=== PATIENT | female | born 1990 | race Caucasian/White ===

== ENCOUNTER 2022-01-04 11:34 | Emergency (ER) | payer OTHER, SELFPAY ==
[2022-01-04] VITALS (9 sets, daily range): BP systolic 119–128; BP diastolic 77–82; PULSE 79–97; RESP 18; TEMP 36.7; O2SAT 94–100; BMI 28.5
--- NOTE | 2022-01-04 12:47 | DI.CT.S_ITS ---
PROCEDURE: CT ABDOMEN PELVIS W CON INDICATIONS: RLQ pain, bright red blood in stool, sharp pain since 0200 TECHNIQUE: After the administration of intravenous contrast, axial sections acquired from the lung bases to the pubic symphysis. Coronal and sagittal reformats were performed. For radiation dose reduction, the following was used: automated exposure control, adjustment of mA and/or kV according to patient size. COMPARISON: None. FINDINGS: Image quality: Excellent. Lung bases: Unremarkable. Heart: No significant findings. ABDOMEN: Liver: There is mild hepatomegaly, no discrete hepatic lesion.. Gallbladder: Unremarkable. Biliary ducts: Unremarkable. Pancreas: Unremarkable. Spleen: Unremarkable. Adrenal Glands: Unremarkable. Kidneys and Ureters: Unremarkable. Stomach and Bowel: There is no bowel obstruction. No stomach or small bowel wall thickening. Appendix is visualized in right lower quadrant and is normal in size and appearance. There is mild diffuse colonic wall thickening particularly involving hepatic flexure, transverse colon and descending colon extending to sigmoid colon with mild wall edema and minimal amount of pericolonic fat stranding concerning for infectious inflammatory colitis. No abscess collection. Peritoneum: No abnormal intraperitoneal fluid. No free air. Ventral Wall: No hernias. Abdominal Nodes: No retroperitoneal or mesenteric adenopathy by size criteria. Vessels: Aorta and inferior vena cava are normal in size. PELVIS: Pelvic Organs: No gross abnormalities. Bladder: Unremarkable. Pelvic Nodes: No enlarged lymph nodes. Miscellaneous: No hernias are seen. Bones: No suspicious bony lesion. No acute vertebral body compression fracture. IMPRESSION: 1. Extensive colonic wall thickening concerning for infectious or inflammatory colitis. No abscess collection. No free fluid or free air. 2. Normal appendix. No bowel obstruction. 3. Mild hepatomegaly, no discrete hepatic lesion. Dictated by: Demian Wiley M.D. on 01/04/2022 at 13:13 Approved by: Demian Wiley M.D. on 01/04/2022 at 13:16
[2022-01-04 12:57] LABS: Add Manual Diff / Slide Review NO; Basophils Absolute Auto 0 /uL (0-100); Basophils Percent Auto 0.3 % (0-2); Eosinophils Absolute Auto 0 /uL (0-450); Eosinophils Percent Auto 0.2 % (2-4); Hematocrit 38.2 % (36-46); Hemoglobin 13.4 g/dL (12.0-16.0); Lymphocytes Absolute Auto 1200 /uL (1100-4500); Lymphocytes Percent Auto 11.8 % (25-40); Mean Corpuscular HGB Conc 35.1 % (30-36); Mean Corpuscular Hemoglobin 28.5 PG (26-34); Monocytes Absolute Auto 500 /uL (0-900); Monocytes Percent Auto 4.6 % (3-14); Neutrophils Absolute Auto 8500 /uL (1500-7000); Neutrophils Percent Auto 83.1 % (50-75); Platelet Count 324 X10^3/uL (150-400); Red Blood Cell Count 4.71 X10^6/uL (4.0-5.2); Red Cell Distribution Width 12.9 % (11.6-14.8); White Blood Cell Count 10.2 X10^3/uL (4.5-11.0)
--- NOTE | 2022-01-04 12:58 | ED_ITS ---
HPI - Abdominal Pain <DEWEY Massey - Last Filed: 01/04/22 14:12> General Chief Complaint: Abdominal Pain Stated Complaint: abd pain, rectal bleeding Time Seen by Provider: 01/04/22 12:14 Source: patient Mode of arrival: Ambulatory History of Present Illness HPI narrative: This is a 31-year-old female with history of IBS, PCOS, endometriosis, and pelvic floor disorder who presents to the emergency department complaining of acute onset of sharp transverse low abdominal pain at 02:00 followed by bright r ed blood in her stool over the next 4 hours. Patient reports that she had left- sided pelvic pain days ago and she thought it was a ruptured ovarian cyst and when her pain came on this morning she is due for her menstrual cycle so she thought it was cramping at 1st. Patient denies any nausea unless triggered by pain. She denies any vomiting, she states that she felt hot and cold but does not report checking a temperature. She denies any dysuria, flank pain, back pain, weakness, chills, and denies any history of abdominal surgery in the past. Patient's primary care provider is Dr. Elder but she reports it has been over 1 year since she has seen him. Patient also endorses that she was paddle boarding last week when a Leech was found in between her toes, she states it came off without incident but was on her her skin for approximately 1 hour. She denies any rash, pain, infection at that site at the time. Patient denies any history of an abdominal CT. She states she is otherwise healthy without any other medical disorders and does not take any medications. She denies any chance of . Sshe denies any rectal pain, endorses history of hemorrhoids. Related Data Allergies Allergy/AdvReac Type Severity Reaction Status Date / Time azithromycin Allergy Verified 01/04/22 13:43 Review of Systems <DEWEY Massey - Last Filed: 01/04/22 14:12> Review of Systems Narrative: General: denies fever, chills, malaise, sweats, fatigue, endorses feeling diaphoretic and hot and cold this morning while she was having bowel movements Head/Neck: denies headache, neck pain, dizziness Eyes: denies visual changes, eye pain Cardio: denies chest pain, palpitations, edema Respiratory: denies dyspnea, cough, orthopnea GI: Endorses low transverse abdominal pain, worse on the right lower quadrant, denies nausea or vomiting, endorses bright red blood in his stool with multiple bowel movements this morning. : denies dysuria, hematuria, urinary retention, frequency or incontinence MSK: denies joint pain, muscle weakness Skin: denies rash, itching, skin lesions or other Neuro: denies numbness, tingling Patient History <DEWEY Massey - Last Filed: 01/04/22 14:12> Social History Smoking Status: Never smoker Smoking Status: Never smoker alcohol intake frequency: a few times a month Substance Use Type: does not use Exam <EDWEY Massey - Last Filed: 01/04/22 14:12> Narrative Exam Narrative: Independently reviewed vitals signs and nursing notes. General: cooperative, comfortable, in no acute distress, well groomed Head: atraumatic, symmetrical facial expressions Neck: supple Eyes: equal round and reactive, EOMI, conjunctiva normal Nose: nares patent, no rhinorrhea Mouth/Throat: moist mucus membranes Cardiovascular: regular rate and rhythm, no peripheral edema, warm extremities Respiratory: normal effort, able to speak in complete sentences, no audible wheezing, stridor, or rales. No retractions or tachypnea. GI: abdomen soft, tender to palpation over McBurney's point and transverse acros s her low abdomen colon, mildly distended, soft to palpation, no CVA tenderness bilaterally, no masses, no exquisite tenderness with exam, without guarding or rebound. Negative psoas sign, negative rebound tenderness MSK: moves all extremities, neurovascularly intact, no weakness, normal tone Skin: brisk capillary refill, no rash, no erythema Neuro: normal speech and cognition, A&O x3 Psych: mental status is grossly normal, congruent mood, normal affect, pleasant and cooperative Initial Vital Signs Initial Vital Signs: Vital Signs Pulse Rate 83 01/04/22 11:49 Blood Pressure 128/80 01/04/22 11:49 Pulse Oximetry 94 01/04/22 11:49 <Mireya Silva MD - Last Filed: 01/04/22 18:56> Initial Vital Signs Initial Vital Signs: Vital Signs Pulse Rate 83 01/04/22 11:49 Blood Pressure 128/80 01/04/22 11:49 Pulse Oximetry 94 01/04/22 11:49 Course <DEWEY Massey - Last Filed: 01/04/22 14:12> Orders Ordered: ED Orders 01/04/22 12:35 Complete Blood Count AUTO DIFF Stat Comprehensive Metabolic Panel Stat Lipase Stat Procalcitonin Stat 01/04/22 12:47 CT abdomen pelvis w con Stat 01/04/22 12:50 Lactate (Lactic Acid) Stat Discontinued Medications Hydromorphone HCl (Hydromorphone 0.5 Mg Inj) 0.5 mg IV Q1H PRN PRN Reason: Pain, Moderate (4-6) Sodium Chloride (Normal Saline 0.9%) 1,000 mls @ 1,000 mls/hr IV BOLUS ONE Stop: 01/04/22 13:46 Last Infusion: 01/04/22 14:49 Dose: 0 mls/hr Documented By: Admin: 01/04/22 13:00 Dose: 1,000 mls/hr Documented By: NR Ketorolac Tromethamine (Ketorolac 30 Mg/Ml Vial) 15 mg IV NOW ONE Stop: 01/04/22 13:28 Last Admin: 01/04/22 13:45 Dose: 15 mg Documented By: NR Vital Signs Vital signs: Vital Signs - 8 hr 01/04/22 11:55 01/04/22 11:49 01/04/22 11:49 Temperature 98.0 F Pulse Rate 83 83 Respiratory Rate 18 Blood Pressure 128/80 128/80 Pulse Oximetry 97 94 Oxygen Delivery Method Room Air 01/04/22 12:00 01/04/22 12:00 01/04/22 12:30 Temperature Pulse Rate 93 H Respiratory Rate Blood Pressure 123/82 119/77 Pulse Oximetry 99 Oxygen Delivery Method 01/04/22 12:30 01/04/22 13:04 01/04/22 13:30 Temperature Pulse Rate 88 97 H 87 Respiratory Rate Blood Pressure Pulse Oximetry 97 98 100 Oxygen Delivery Method 01/04/22 13:56 01/04/22 13:55 01/04/22 13:55 Temperature Pulse Rate 81 Respiratory Rate Blood Pressure 122/78 122/78 Pulse Oximetry 99 Oxygen Delivery Method 01/04/22 14:00 Temperature Pulse Rate 79 Respiratory Rate Blood Pressure Pulse Oximetry 100 Oxygen Delivery Method <Mireya Silva MD - Last Filed: 01/04/22 18:56> Orders Ordered: ED Orders 01/04/22 12:35 Complete Blood Count AUTO DIFF Stat Comprehensive Metabolic Panel Stat Lipase Stat Procalcitonin Stat 01/04/22 12:47 CT abdomen pelvis w con Stat 01/04/22 12:50 Lactate (Lactic Acid) Stat Discontinued Medications Hydromorphone HCl (Hydromorphone 0.5 Mg Inj) 0.5 mg IV Q1H PRN PRN Reason: Pain, Moderate (4-6) Sodium Chloride (Normal Saline 0.9%) 1,000 mls @ 1,000 mls/hr IV BOLUS ONE Stop: 01/04/22 13:46 Last Infusion: 01/04/22 14:49 Dose: 0 mls/hr Documented By: Admin: 01/04/22 13:00 Dose: 1,000 mls/hr Documented By: CHRISTOPHER Ketorolac Tromethamine (Ketorolac 30 Mg/Ml Vial) 15 mg IV NOW ONE Stop: 01/04/22 13:28 Last Admin: 01/04/22 13:45 Dose: 15 mg Documented By: CHRISTOPHER Vital Signs Vital signs: Vital Signs - 8 hr 01/04/22 11:55 01/04/22 11:49 01/04/22 11:49 Temperature 98.0 F Pulse Rate 83 83 Respiratory Rate 18 Blood Pressure 128/80 128/80 Pulse Oximetry 97 94 Oxygen Delivery Method Room Air 01/04/22 12:00 01/04/22 12:00 01/04/22 12:30 Temperature Pulse Rate 93 H Respiratory Rate Blood Pressure 123/82 119/77 Pulse Oximetry 99 Oxygen Delivery Method 01/04/22 12:30 01/04/22 13:04 01/04/22 13:30 Temperature Pulse Rate 88 97 H 87 Respiratory Rate Blood Pressure Pulse Oximetry 97 98 100 Oxygen Delivery Method 01/04/22 13:56 01/04/22 13:55 01/04/22 13:55 Temperature Pulse Rate 81 Respiratory Rate Blood Pressure 122/78 122/78 Pulse Oximetry 99 Oxygen Delivery Method 01/04/22 14:00 Temperature Pulse Rate 79 Respiratory Rate Blood Pressure Pulse Oximetry 100 Oxygen Delivery Method MDM - Abdominal Pain <DEWEY Massey - Last Filed: 01/04/22 14:12> Lab Data Result diagrams: 01/04/22 12:35 01/04/22 12:35 Labs: Lab Results 01/04/22 01/04/22 01/04/22 Range/Units 12:35 12:35 12:35 WBC 10.2 (4.5-11.0) X10^3/uL RBC 4.71 (4.0-5.2) X10^6/uL Hgb 13.4 (12.0-16.0) g/dL Hct 38.2 (36-46) % MCV 81.0 (80-100) fL MCH 28.5 (26-34) PG MCHC 35.1 (30-36) % RDW 12.9 (11.6-14.8) % Plt Count 324 (150-400) X10^3/uL Neut % (Auto) 83.1 H (50-75) % Lymph % (Auto) 11.8 L (25-40) % Loving % (Auto) 4.6 (3-14) % Eos % (Auto) 0.2 L (2-4) % Baso % (Auto) 0.3 (0-2) % Neut # (Auto) 8500 H (1893-2002) /uL Lymph # (Auto) 1200 (9131-1821) /uL Loving # (Auto) 500 (0-900) /uL Eos # (Auto) 0 (0-450) /uL Baso # (Auto) 0 (0-100) /uL Sodium 139 (137-145) mmol/L Potassium 3.9 (3.4-5.1) mmol/L Chloride 107 (98-107) mmol/L Carbon Dioxide 25 (22-32) mmol/L BUN 10 (7-17) mg/dL Creatinine 0.66 (0.52-1.04) mg/dL Estimated GFR > 60 (>60) mL/min BUN/Creatinine Ratio 15.2 (6-22) Glucose 105 H (70-100) mg/dL Lactate (0.7-2.1) mmol/L Calcium 8.9 (8.4-10.2) mg/dL Total Bilirubin 0.6 (0.2-1.3) mg/dL AST 23 (14-36) IU/L ALT 20 (<35) IU/L Alkaline Phosphatase 62 (38-126) U/L Total Protein 7.6 (6.3-8.2) g/dL Albumin 4.3 (3.5-5.0) g/dL Globulin 3.3 (1.7-4.1) g/dL Albumin/Globulin Ratio 1.3 (1.0-2.8) Lipase 53 (23-300) U/L Procalcitonin 0.04 (<0.5) ng/mL 01/04/22 Range/Units 12:50 WBC (4.5-11.0) X10^3/uL RBC (4.0-5.2) X10^6/uL Hgb (12.0-16.0) g/dL Hct (36-46) % MCV (80-100) fL MCH (26-34) PG MCHC (30-36) % RDW (11.6-14.8) % Plt Count (150-400) X10^3/uL Neut % (Auto) (50-75) % Lymph % (Auto) (25-40) % Loving % (Auto) (3-14) % Eos % (Auto) (2-4) % Baso % (Auto) (0-2) % Neut # (Auto) (5040-7925) /uL Lymph # (Auto) (6020-1117) /uL Loving # (Auto) (0-900) /uL Eos # (Auto) (0-450) /uL Baso # (Auto) (0-100) /uL Sodium (137-145) mmol/L Potassium (3.4-5.1) mmol/L Chloride (98-107) mmol/L Carbon Dioxide (22-32) mmol/L BUN (7-17) mg/dL Creatinine (0.52-1.04) mg/dL Estimated GFR (>60) mL/min BUN/Creatinine Ratio (6-22) Glucose (70-100) mg/dL Lactate 1.1 (0.7-2.1) mmol/L Calcium (8.4-10.2) mg/dL Total Bilirubin (0.2-1.3) mg/dL AST (14-36) IU/L ALT (<35) IU/L Alkaline Phosphatase (38-126) U/L Total Protein (6.3-8.2) g/dL Albumin (3.5-5.0) g/dL Globulin (1.7-4.1) g/dL Albumin/Globulin Ratio (1.0-2.8) Lipase (23-300) U/L Procalcitonin (<0.5) ng/mL Point of care testing: Point of Care Testing Test Results Negative Urine Dip Bedside Urine Glucose Negative Bedside Urine Bilirubin - Negative Bedside Urine Ketone - Negative Urine Specific [place] 1.020 Bedside Urine Occult Blood - Negative Bedside Urine pH 6.0 Bedside Urine Protein - Negative Bedside Urine Urobilinogen - Negative Bedside Urine Nitrite - Negative Bedside Urine Leukocytes - Negative Esterase Imaging Data CT scan - abdomen/pelvis: Radiologist's Impression: PROCEDURE:? CT ABDOMEN PELVIS W CON ? INDICATIONS:? RLQ pain, bright red blood in stool, sharp pain since 0200 ? TECHNIQUE:? After the administration of intravenous contrast, axial sections acquired from the lung bases to the pubic symphysis.? Coronal and sagittal reformats were performed.? For radiation dose reduction, the following was used:? automated exposure control, adjustment of mA and/or kV according to patient size.? ? COMPARISON:? None. ? FINDINGS:? Image quality:? Excellent.? ? Lung bases:? Unremarkable. Heart:? No significant findings. ? ABDOMEN: Liver:? There is mild hepatomegaly, no discrete hepatic lesion..? ? Gallbladder:? Unremarkable. Biliary ducts:? Unremarkable.? ? Pancreas:? Unremarkable.? ? Spleen:? Unremarkable.? ? Adrenal Glands:? Unremarkable.? ? Kidneys and Ureters:? Unremarkable.? ? ? Stomach and Bowel:? There is no bowel obstruction.? No stomach or small bowel wall thickening.? Appendix is visualized in right lower quadrant and is normal in size and appearance.? There is mild diffuse colonic wall thickening particularly involving hepatic flexure, transverse colon and descending colon extending to sigmoid colon with mild wall edema and minimal amount of pericolonic fat stranding concerning for infectious inflammatory colitis.? No abscess collection. Peritoneum:? No abnormal intraperitoneal fluid.? No free air.? ? Ventral Wall: ? No hernias.? Abdominal Nodes:? No retroperitoneal or mesenteric adenopathy by size criteria.? Vessels:? Aorta and inferior vena cava are normal in size.? ? PELVIS: Pelvic Organs:? No gross abnormalities. Bladder:? Unremarkable.? ? Pelvic Nodes: No enlarged lymph nodes.? Miscellaneous: No hernias are seen. ? ? ? Bones:? No suspicious bony lesion.? No acute vertebral body compression fracture. ? ? IMPRESSION:? 1. Extensive colonic wall thickening concerning for infectious or inflammatory colitis.? No abscess collection.? No free fluid or free air. 2. Normal appendix.? No bowel obstruction. 3.? Mild hepatomegaly, no discrete hepatic lesion.? ? ? Dictated by: Demian Wiley M.D. on 01/04/2022 at 13:13 ? ? Approved by: Demian Wiley M.D. on 01/04/2022 at 13:16 ? MDM Narrative Medical decision making narrative: This is a 31 year old female who presents to the emergency department with acute onset of transverse mid abdominal pain that started at 02:00 followed by bright red blood stools for the next 4 hours. She has a history of IBS, hemorrhoids, PCOS, endometriosis and no recent fever, chills, shortness of breath or other symptoms. Lab work was grossly reassuring, no leukocytosis, differential shows predominant neutrophil count with a low lymphocyte count, creatinine 0.66, GFR over 60, lactate 1.1, total bilirubin 0.6, no elevation to AST, ALT, alkaline phosphatase, or other liver enzymes. Lipase is 53 and procalcitonin is 0.04. She is afebrile, UA shows no abnormal findings, abdomen pelvis CT with contrast shows extensive colonic wall thickening concerning for infectious or inflammatory colitis without abscess collection or free fluid/air. Normal appendix without bowel obstruction, mild hepatomegaly, no discrete hepatic lesion, no gross abnormalities in her pelvic organs without enlarged lymph nodes. She was given 1 L of normal saline in the emergency department and 50 mg of IV Toradol. Discussed symptomatic care at home with a bland diet, hydration, follow-up with OBGYN regarding her PCOS/endometriosis and [facility] for a colonoscopy. She was unable to have a bowel movement while in the emergency department but a GI panel was ordered. Patient may return to the emergency department or walk-in clinic with said stool sample if this continues. Recommend following up with outpatient providers as discussed. No peritoneal signs on abdominal exam. Patient remains p.o. tolerant. Serial abdominal exam without increase in abdominal pain. Given history and exam, low suspicion for acute abdominal process, such as acute cholecystitis, pancreatitis, perforated viscus, atypical appendicitis, colitis, diverticulitis or torsion. Extensive conversation about ER return precautions and need for close follow-up. Patient is appropriate and amenable to discharge home. Vital signs are stable on repeat examination is unremarkable. Patient has been informed of results. Patient has been given strict return to ER precautions for any new or worsening symptoms. Patient understands to follow up closely with outpatient providers as instructed. Patient understands plan and agrees to discharge home. All questions and concerns answered at this time. <Mireya Silva MD - Last Filed: 01/04/22 18:56> Lab Data Labs: Lab Results 01/04/22 01/04/22 01/04/22 Range/Units 12:35 12:35 12:35 WBC 10.2 (4.5-11.0) X10^3/uL RBC 4.71 (4.0-5.2) X10^6/uL Hgb 13.4 (12.0-16.0) g/dL Hct 38.2 (36-46) % MCV 81.0 (80-100) fL MCH 28.5 (26-34) PG MCHC 35.1 (30-36) % RDW 12.9 (11.6-14.8) % Plt Count 324 (150-400) X10^3/uL Neut % (Auto) 83.1 H (50-75) % Lymph % (Auto) 11.8 L (25-40) % Loving % (Auto) 4.6 (3-14) % Eos % (Auto) 0.2 L (2-4) % Baso % (Auto) 0.3 (0-2) % Neut # (Auto) 8500 H (4173-2658) /uL Lymph # (Auto) 1200 (9050-7452) /uL Loving # (Auto) 500 (0-900) /uL Eos # (Auto) 0 (0-450) /uL Baso # (Auto) 0 (0-100) /uL Sodium 139 (137-145) mmol/L Potassium 3.9 (3.4-5.1) mmol/L Chloride 107 (98-107) mmol/L Carbon Dioxide 25 (22-32) mmol/L BUN 10 (7-17) mg/dL Creatinine 0.66 (0.52-1.04) mg/dL Estimated GFR > 60 (>60) mL/min BUN/Creatinine Ratio 15.2 (6-22) Glucose 105 H (70-100) mg/dL Lactate (0.7-2.1) mmol/L Calcium 8.9 (8.4-10.2) mg/dL Total Bilirubin 0.6 (0.2-1.3) mg/dL AST 23 (14-36) IU/L ALT 20 (<35) IU/L Alkaline Phosphatase 62 (38-126) U/L Total Protein 7.6 (6.3-8.2) g/dL Albumin 4.3 (3.5-5.0) g/dL Globulin 3.3 (1.7-4.1) g/dL Albumin/Globulin Ratio 1.3 (1.0-2.8) Lipase 53 (23-300) U/L Procalcitonin 0.04 (<0.5) ng/mL 01/04/22 Range/Units 12:50 WBC (4.5-11.0) X10^3/uL RBC (4.0-5.2) X10^6/uL Hgb (12.0-16.0) g/dL Hct (36-46) % MCV (80-100) fL MCH (26-34) PG MCHC (30-36) % RDW (11.6-14.8) % Plt Count (150-400) X10^3/uL Neut % (Auto) (50-75) % Lymph % (Auto) (25-40) % Loving % (Auto) (3-14) % Eos % (Auto) (2-4) % Baso % (Auto) (0-2) % Neut # (Auto) (9752-7687) /uL Lymph # (Auto) (5043-4168) /uL Loving # (Auto) (0-900) /uL Eos # (Auto) (0-450) /uL Baso # (Auto) (0-100) /uL Sodium (137-145) mmol/L Potassium (3.4-5.1) mmol/L Chloride (98-107) mmol/L Carbon Dioxide (22-32) mmol/L BUN (7-17) mg/dL Creatinine (0.52-1.04) mg/dL Estimated GFR (>60) mL/min BUN/Creatinine Ratio (6-22) Glucose (70-100) mg/dL Lactate 1.1 (0.7-2.1) mmol/L Calcium (8.4-10.2) mg/dL Total Bilirubin (0.2-1.3) mg/dL AST (14-36) IU/L ALT (<35) IU/L Alkaline Phosphatase (38-126) U/L Total Protein (6.3-8.2) g/dL Albumin (3.5-5.0) g/dL Globulin (1.7-4.1) g/dL Albumin/Globulin Ratio (1.0-2.8) Lipase (23-300) U/L Procalcitonin (<0.5) ng/mL Point of care testing: Point of Care Testing Test Results Negative Urine Dip Bedside Urine Glucose Negative Bedside Urine Bilirubin - Negative Bedside Urine Ketone - Negative Urine Specific [place] 1.020 Bedside Urine Occult Blood - Negative Bedside Urine pH 6.0 Bedside Urine Protein - Negative Bedside Urine Urobilinogen - Negative Bedside Urine Nitrite - Negative Bedside Urine Leukocytes - Negative Esterase Discharge Plan Departure Patient Disposition: Home Clinical Impression: Colitis, Bright red rectal bleeding Instructions: Polycystic Ovary Syndrome, DI for Endometriosis, DI for Viral Gastroenteritis -- Adult, DI for Colitis Activity Restrictions/Additional Instructions: *You have been diagnosed with colitis with bright red blood likely coming from internal hemorrhoids. Your CT scan does not show any significant inflammation, does not show any emergent causes to your abdominal pain which is great news, and it does not appear that there is any free fluid in your abdomen or pelvis. It is reasonable to stay hydrated, eat a fairly bland diet without a lot of fiber and this should resolve in the next day or 2 without any intervention. If this is progressive, and if your pain is worse, then you can come back to the emergency department for another evaluation. Please follow-up with [facility] for colonoscopy in the future. Dr. Wynn is who was on-call today but the phone number for her is the [facility] office. You can schedule this as an outpatient,and Dr. Kelly is the OBGYN on-call today, you may call her and make an appointment with her to follow-up for all of your OBGYN needs. Your lab work is reassuring that this is not causing a systemic infection, your blood counts are normal, your electrolytes are balanced and all of your organs appear to be functioning normally. I hope that you start feeling better soon, please look into Dr. Presley to see if she would be a good contact for you for your endometriosis. Anti-inflammatories are not contraindicated and might help, please ensure you take ibuprofen with food and water if you do. Please c all the number below to establish care with one of the primary care providers. *What to do: *Please continue to take your regular medications as directed. [ ] New medication prescriptions sent to your pharmacy: [ ] [ ] New medication written as a paper prescription [x ] No new medications given *Please follow up with your primary care provider in 2-3 days, call for an appointment. Let them know you were seen in the Emergency Department and that we asked that you be seen for follow-up. We will electronically transmit a record of today's note if your PCP is in our system *If you do not have a primary care provider please contact [phone] to establish care with one of the [facility] primary care providers. *Return to Emergency Department if you should have any new, worsening, or concerning symptoms, such as [fever greater than 101F, chills, worsening pain, persistent vomiting or other bothersome symptoms]. Referrals: Ifeoma Wynn MD [Physician] - Sugar Kelly MD [Physician] - Francine Presley MD [Non-Staff] - 3-5 days Visit Report Forms: Patient Portal/API <Mireya Silva MD - Last Filed: 01/04/22 18:56> [facility] I was immediately available in the department for consultation throughout this patient's visit. I agree with documentation as above. Mireya Silva MD
[2022-01-04] MEDS: SODIUM CHLORIDE 0.9% 1,000 ML 1000 ML IV (13:00)
[2022-01-04 13:15] LABS: Alanine Aminotransferase 20 IU/L (<35); Albumin 4.3 g/dL (3.5-5.0); Albumin Globulin Ratio 1.3 (1.0-2.8); Alkaline Phosphatase 62 U/L (38-126); Aspartate Aminotransferase 23 IU/L (14-36); BUN Creatinine Ratio 15.2 (6-22); Bilirubin Total 0.6 mg/dL (0.2-1.3); Blood Urea Nitrogen 10 mg/dL (7-17); Calcium 8.9 mg/dL (8.4-10.2); Carbon Dioxide 25 mmol/L (22-32); Chloride 107 mmol/L (98-107); Estimated Glomerular Filt Rate > 60 mL/min (>60); Globulin 3.3 g/dL (1.7-4.1); Glucose 105 mg/dL (70-100); HEMOLYSIS < 15 (0-50); Lipase 53 U/L (23-300); Potassium 3.9 mmol/L (3.4-5.1); Sodium 139 mmol/L (137-145); Total Protein 7.6 g/dL (6.3-8.2)
[2022-01-04 13:19] LABS: Lactate (Lactic Acid) 1.1 mmol/L (0.7-2.1)
[2022-01-04 13:36] LABS: Procalcitonin 0.04 ng/mL (<0.5)
[2022-01-04] MEDS: KETOROLAC 30 MG/ML VIAL 15 MG IV (13:45)
== END 2022-01-04 14:50 | disposition home or self-care (01) ==
PROVIDERS: Emergency Medicine; Emergency Provider Nurse Practitioner Critical Care Medicine
DX: K52.9 Noninfective gastroenteritis and colitis, unspecified (principal); K62.5 Hemorrhage of anus and rectum
CPT/HCPCS: 36415; 74177; 80053; 81003; 81025; 83605; 83690; 84145; 85025; 96361; 96374; 99284; J1885; Q9967

== ENCOUNTER → 2024-05-24 10:20 | Outpatient (CLI) | payer OTHER, SELFPAY | PROVIDERS: PCP Family Medicine; Visit Provider Family Medicine | DX: N39.0 Urinary tract infection, site not specified (principal) | CPT/HCPCS: 87086 ==

== ENCOUNTER → 2024-05-29 16:59 | Outpatient (CLI) | payer OTHER, SELFPAY | PROVIDERS: PCP Family Medicine; Visit Provider Family Medicine | DX: Z11.3 Encounter for screening for infections with a predominantly sexual mode of transmission (principal) | CPT/HCPCS: 87491; 87563; 87591 ==

== ENCOUNTER → 2024-10-25 14:00 | Outpatient (CLI) | payer OTHER, SELFPAY ==
[2024-10-25 15:02] LABS: HCG Quantitative /Beta subunit 1858.9 mIU/mL
== END ==
PROVIDERS: PCP Family Medicine; Referring Provider Family Medicine; Visit Provider Family Medicine
DX: Z34.90 Encounter for supervision of normal pregnancy, unspecified, unspecified trimester (principal)
CPT/HCPCS: 36415; 84702

== ENCOUNTER → 2024-10-28 12:02 | Outpatient (CLI) | payer OTHER, SELFPAY ==
[2024-10-28 12:35] LABS: Add Manual Diff / Slide Review NO; Basophils Absolute Auto 100 /uL (0-100); Basophils Percent Auto 0.6 % (0-2); Eosinophils Absolute Auto 200 /uL (0-450); Eosinophils Percent Auto 2.3 % (2-4); Hematocrit 38.5 % (36-46); Hemoglobin 13.3 g/dL (12.0-16.0); Lymphocytes Absolute Auto 1600 /uL (1100-4500); Lymphocytes Percent Auto 20.3 % (25-40); Mean Corpuscular HGB Conc 34.7 % (30-36); Mean Corpuscular Hemoglobin 28.5 PG (26-34); Mean Corpuscular Volume 82.3 fL (80-100); Monocytes Absolute Auto 700 /uL (0-900); Monocytes Percent Auto 8.6 % (3-14); Neutrophils Absolute Auto 5400 /uL (1500-7000); Neutrophils Percent Auto 68.2 % (50-75); Platelet Count 360 X10^3/uL (150-400); Red Blood Cell Count 4.68 X10^6/uL (4.0-5.2); Red Cell Distribution Width 12.4 % (11.6-14.8); White Blood Cell Count 7.9 X10^3/uL (4.5-11.0)
[2024-10-28 13:02] LABS: Appearance Urine UA CLEAR; Bilirubin Urine UA NEGATIVE (NEGATIVE); Color Urine UA YELLOW; Glucose Urine UA NEGATIVE (Negative); Ketones Urine UA NEGATIVE (NEGATIVE); Leukocyte Esterase Urine UA NEGATIVE (NEGATIVE); Nitrite Urine UA NEGATIVE (Negative); Occult Blood Urine UA NEGATIVE (Negative); Protein Urine UA NEGATIVE (Negative); Urobilinogen Urine UA 0.2 E.U./dL (0.2)
[2024-10-28 13:11] LABS: HCG Quantitative /Beta subunit 3774.4 mIU/mL
[2024-10-29 06:36] LABS: Varicella IgG Antibody Reactive (Non Reactive)
[2024-10-29 15:09] LABS: Hepatitis B Surface Antigen NEGATIVE s/c (NEGATIVE); Rubella Antibody IgG 47.5 IU/mL (>15)
[2024-10-29 15:29] LABS: HIV 1 & 2 Ab/Ag 4th Gen Combo NEGATIVE (NEGATIVE); Hep C Virus Ab w/Reflex Quant NEGATIVE s/c (NEGATIVE)
== END ==
LOC: LAB 12:03
PROVIDERS: PCP Family Medicine; Referring Provider Family Medicine; Visit Provider Family Medicine
DX: Z34.90 Encounter for supervision of normal pregnancy, unspecified, unspecified trimester (principal); E28.2 Polycystic ovarian syndrome
CPT/HCPCS: 36415; 80055; 81003; 83036; 84702; 86787; 86803; 86850; 86900; 86901; 87086; 87389

== ENCOUNTER → 2024-11-18 16:30 | Outpatient (CLI) | payer OTHER, SELFPAY ==
--- NOTE | 2024-11-18 16:31 | DI.US.S_ITS ---
PROCEDURE: US OB <= 14 WEEKS FETUS INDICATIONS: dating and viability OUTSIDE/PRIOR DATING DATA: Last menstrual period (LMP): 09/17/2024 LMP-based estimated date of delivery (ROXANA): 06/24/2025 First dating scan (date and location): 11/18/2024 Estimated date of delivery (ROXANA) from first dating scan: 07/03/2025 TECHNIQUE: Real-time scanning was performed of the fetus and maternal pelvic organs, with image documentation. Endovaginal scanning was also performed to better visualize the fetus and maternal ovaries. COMPARISON: None. FINDINGS: Embryo: Single intrauterine gestational sac is seen with fetus and yolk sac seen. [place]-rump length measures 1.3 cm. Estimated gestational age is 7 weeks, 4 days. Heart rate: 162 beats per minute. Small perigestational hemorrhage measures 1 x 0.5 x 1.2 cm in size anterior to the gestational sac. Maternal organs: Corpus luteum is seen in right ovary. Left ovary is within normal limits. IMPRESSION: 1. Single live intrauterine gestation with fetus and yolk sac seen. heart rate is 162 beats per minute. Estimated gestational age based on current study is 7 weeks, 4 days. 2. Small perigestational hematoma as above. Corpus luteum seen in right ovary. We strive to produce accurate, complete, and clear reports of imaging services. To assist us in improving patient care, this report was composed using standard report templates and voice recognition software. Therefore, it may contain abnormal punctuation, insertions and/or omissions. Occasional wrong-word or sound-alike substitutions may occur. Though we review the report and make efforts to correct it, we do recommend that the report be read carefully in proper context to recognize any text inaccuracies. Dictated by: Demian Wiley M.D. on 11/19/2024 at 11:44 Approved by: Demian Wiley M.D. on 11/19/2024 at 11:46
== END ==
PROVIDERS: PCP Family Medicine; Referring Provider Family Medicine; Visit Provider Family Medicine
DX: O20.8 Other hemorrhage in early pregnancy (principal); Z3A.01 Less than 8 weeks gestation of pregnancy
CPT/HCPCS: 76801; 76817

== ENCOUNTER → 2024-12-02 16:41 | Outpatient (CLI) | payer OTHER, SELFPAY ==
--- NOTE | 2024-12-02 16:42 | DI.US.S_ITS ---
PROCEDURE: US OB FOLLOW UP INDICATIONS: growth, possible SGA OUTSIDE/PRIOR DATING DATA: Last menstrual period (LMP): 09/17/2024 LMP-based estimated date of delivery (ROXANA): 06/24/2025 First dating scan (date and location): 11/18/2024 Estimated date of delivery (ROXANA) from first dating scan: 07/03/2025 TECHNIQUE: Real-time scanning was performed of the fetus, with image documentation and biometric measurements. Endovaginal scanning: Performed COMPARISON: 11/18/2024. FINDINGS: General: Single intrauterine gestational sac is seen with fetus noted. [place]- rump length measures 2.5 cm with estimated gestational age of 9 weeks, 1 day. Estimated gestational age based on last menstrual period is 10 weeks, 6 days. No cardiac activity is detected. Other: Not applicable. IMPRESSION: Finding is concerning for intrauterine demise. Correlation with cereal beta HCG level is recommended. We strive to produce accurate, complete, and clear reports of imaging services. To assist us in improving patient care, this report was composed using standard report templates and voice recognition software. Therefore, it may contain abnormal punctuation, insertions and/or omissions. Occasional wrong-word or sound-alike substitutions may occur. Though we review the report and make efforts to correct it, we do recommend that the report be read carefully in proper context to recognize any text inaccuracies. Dictated by: Demian Wiley M.D. on 12/03/2024 at 12:21 Approved by: Demian Wiley M.D. on 12/03/2024 at 12:23
== END ==
PROVIDERS: PCP Family Medicine; Referring Provider Family Medicine; Visit Provider Family Medicine
DX: O36.80X0 Pregnancy with inconclusive fetal viability, not applicable or unspecified (principal)
CPT/HCPCS: 76816; 76817

== ENCOUNTER → 2024-12-04 14:11 | Outpatient (CLI) | payer OTHER, SELFPAY ==
[2024-12-04 16:41] LABS: HCG Quantitative /Beta subunit 96388 mIU/mL
== END ==
PROVIDERS: PCP Family Medicine; Referring Provider Family Medicine; Visit Provider Family Medicine
DX: O03.9 Complete or unspecified spontaneous abortion without complication (principal)
CPT/HCPCS: 36415; 84702

== ENCOUNTER → 2024-12-06 14:22 | Outpatient (CLI) | payer OTHER, SELFPAY ==
[2024-12-06 17:46] LABS: HCG Quantitative /Beta subunit 94064 mIU/mL
== END ==
PROVIDERS: PCP Family Medicine; Referring Provider Family Medicine; Visit Provider Family Medicine
DX: O03.9 Complete or unspecified spontaneous abortion without complication (principal)
CPT/HCPCS: 84702

== ENCOUNTER 2024-12-13 12:28 | Day surgery (SDC) | payer OTHER, SELFPAY ==
[2024-12-12 07:55] VITALS: BMI 31.8
[2024-12-13] VITALS (10 sets, daily range): BP systolic 100–118; BP diastolic 57–85; PULSE 58–82; RESP 12–20; TEMP 36.2–36.5; O2SAT 96–100; BMI 31.8
--- NOTE | 2024-12-13 | PATH_ITS ---
[facility] Accession Number: [id number] No. of containers..01 Tissue . 01 Material submitted: . product of conception - PRODUCTS OF CONCEPTION . 01 Diagnosis: PRODUCTS OF CONCEPTION: Products of conception present. Outside consultation pending to evaluate for molar gestation; results will be reported as an addendum. [facility] 12/19/2024 1726 Local . 01 Electronically signed: . Laura Bundy MD, Pathologist NPI- [id number] . 01 Gross description: . Received in formalin with two identifiers and products of conception, are multiple andrade, spongy to membranous soft tissue fragments admixed with mucohemorrhagic material aggregating to 7.2 x 6.8 x 2.4 cm. No tissue is identified. Bending Press Operator sections are submitted in A1-A2. ([id number]) /MRV 12/18/2024 1230 Local . 01 Pathologist provided ICD-10: O02.1 . 01 CPT . 904054 Performed at: [address] [id number], [place], [place] [id number] MD Randolph Garcia MD Phone: [phone]
[2024-12-13] MEDS: ACETAMINOPHEN IV 1,000 MG/100 ML VIAL 400 MG IV (12:47)
[2024-12-13] MEDS: SCOPOLAMINE 1 PATCH TOP (12:47)
[2024-12-13] MEDS: LACTATED RINGERS 1,000 ML 42 ML IV (12:48)
--- NOTE | 2024-12-13 13:33 | P.HPOB_ITS ---
History of Present Illness History of Present Illness Narrative: Nidhi Mims is a 34 year old female who presents for definitive surgical management of missed SAB in early first trimester, failed medical management. Pt states that she is feeling well today. Has continued to have some light brown discharge/spotting but no significant cramping. Affirms medical history per EMR as well as desire to proceed with procedure as scheduled. Informed consent completed in preoperative area at time of int erview. Patient requests tissue pathology be returned to her following analysis; [facility] paperwork completed and patient aware of possible associated shipping charge for return of specimen. No additional questions or concerns identified. [facility] Medical History (Updated 12/09/24 @ 16:59 by Marianne Saldana MD) Miscarriage Depression (05/22/07) Infertility Surgical History (Updated 10/23/24 @ 14:45 by Elisa Adkins RN) [place] teeth removed (05/21/11) History of adenoidectomy (01/06/94) Family History (Updated 10/23/24 @ 14:49 by Elisa Adkins RN) Father Age: 63 Diabetes mellitus Hypertension A-fib Mother Hyperlipidemia Grandmother Heart disease Grandfather Heart disease Aunt Breast cancer Aunt Skin cancer Grandfather Stroke Grandmother Colon cancer Cervical cancer Aunt Breast cancer Family estrangement Social History marital status: unmarried,living together household members: significant other lives independently: Yes caregiver/support person: No housing: house pets and animals: Yes (dogs, cat, horse, guinea pigs, chickens) education level: other occupational status: employed current occupational exposures/hazards: No special celia needs: No travel history: over 6 months ago seatbelt use: always helmet use: Yes water heater temp set < 120 deg: Yes working smoke detector in home: Yes fire extinguisher in home: Yes carbon monox detector in home: Yes firearms in home: No do you feel safe at home: Yes Smoking Status: Never smoker second hand exposure: No alcohol intake: former substance use type: does not use during the past year weight has: remained stable well-balanced diet: about half the time daily servings fruits/ve-4 caffeine: Yes (decaf coffee in AM and small amount CocaCola in afternoon) Type(s) of exercise: walking and other duration: 15-30 minutes/day Meds Home Medications and Allergies Home Medications ?Medication ?Instructions ?Recorded ?Confirmed ?Type fluticasone propionate 50 1 spray intranasal DAILY 08/1310/23/24 History mcg/actuation nasal spray,suspension mometasone 0.1 % topical cream 1 applic topical DAILY ezema #45 05/24/24 10/23/24 Rx grams Zhjyy-Hzvpjr-Ebx-Pgrja-Vtjfk-xmkhibcr cap PO 10/23/24 10/23/24 History 40 billion cell-[address] ([facility] Complete Formulation Probiotic) cetirizine 10 mg tablet (All Day 10 mg PO DAILY PRN 10/23/24 History Allergy (cetirizine)) vitamin-ferrous fumarate 1 tab PO DAILY TTC 0 10/23/24 10/23/24 History 28 mg iron-folic acid 800 mcg tablet misoprostol 200 mcg tablet 800 mcg (4 x 200 mcg) PO ON CE #8 12/09/24 12/09/24 Rx tabs ondansetron 4 mg disintegrating 4 mg PO Q8H #30 tabs 0 12/09/24 12/09/24 Rx tablet oxycodone 5 mg tablet 5 mg PO BID PRN pain #5 tabs 12/09/24 12/09/24 Rx Allergies Allergy/AdvReac Type Severity Reaction Status Date / Time azithromycin AdvReac Intermediate vomiting Verified 12/13/24 12:43 Review of Systems Review of Systems ROS: Yes All systems reviewed with the patient and are negative except as otherwise documented Exam Vital Signs (past 8 hours): - 12/13/24 12:51 Temperature 97.2 F L Pulse Rate 82 Respiratory Rate 16 Blood Pressure 115/76 Pulse Oximetry 98 Oxygen Delivery Method Room Air Oxygen Delivery Method Room Air Const General: cooperative, healthy appearing, comfortable and well developed Nutritional Appearance: overweight Orientation: alert, awake and oriented x3 Limitations: mental status not altered Cardio Pulses: normal peripheral pulses GI Palpation: soft and No tender Other: deferred Skin General: no rashes or lesions noted Neuro General: patient alert, patient awake and patient oriented x3 Extrem General: normal to inspection Psych Mental Status: mental status grossly normal Judgment: judgment good Assessment & Plan Assessment and plan (1) Miscarriage: Status: Acute Assessment & Plan narrative: 34yo presents for definitive surgical management of missed SAB, failed medical management Patient met and examined in preoperative area, affirms desire to proceed with procedure as scheduled Informed consent completed Pt desires tissue specimen to be returned to her following analysis, [facility] form completed plan for PO doxycycline 200mg in PACU prior to discharge, no indication for pre/intra-operative abx dispo: to OR, anticipate dc to home pending routine postprocedure recovery, 2wk f/u with Dr. Constantino per pt request Time-Based Coding :: [TOTAL MINUTES] spent with patient and on the chart (including review of chart, obtaining history, exam, reviewing outside data, placing orders, documenting exam and treatment plan, and counseling patient) on [DATE].
--- NOTE | 2024-12-13 13:38 | PM.PREOP ---
Pre-operative Note Interval Note History & Physical reviewed/Exam performed by Physician: Yes Changes to H&P: No ASA Class (for procedural sedation): II
--- NOTE | 2024-12-13 14:12 | SUR.OPER ---
Lithotomy on padded OR bed, head on pillow, arms secured on padded arm boards at <90 degrees abduction. Legs secured in padded yellow fins stirrups.
--- NOTE | 2024-12-13 14:26 | PM.OP.1 ---
Operative Date/Time/Diagnoses Date of procedure: 12/13/24 Time of procedure: 14:29 Pre-op diagnosis: missed SAB Post-op diagnosis: same Procedure & Clinicians Procedure: suction dilation and curettage Same procedure(s) as scheduled: Yes Indications: missed SAB in early first trimester, failed medical management Surgeon: Lora Garcia Anesthesia Type: General Operative Notes Findings: intrauterine contents consistent with products of conception Applied: none Estimated Blood Loss (mL): 5 Procedure in detail: Pt was taken to the operating room, transferred to OR table and anesthesia was induced with placement of LMA.? Pt had her legs placed in Jesus Manuel stirrups and exam under anesthesia was performed.? The patient was prepped and draped in a sterile fashion.? A time out was performed.? The bladder was emptied via straight catheter in sterile fashion.? A sterile speculum was inserted into the vagina.? The cervix was visualized and grasped anteriorly using a single tooth tenaculum.? The uterus sounded to [XXX] cm and the cervical os was serially dilated using Cha dilators to allow for adequate passage of suction catheter.? The 8mm straight suction curette was inserted into the uterus and the uterine contents were evacuated. Uterine contents were visually inspected and noted to be consistent with products of conception.? The uterus was gently sharply curetted until a gritty texture was noted throughout, followed by additional single pass with suction curette.? Hemostasis was noted.? The tenaculum was removed and hemostasis was noted at insertion sites following brief application of silver nitrate.? Speculum removed.? Hemostasis was again confirmed to be excellent.? The patient then had her legs taken out of stirrups.? The patient tolerated the procedure well and without difficulty.? The patient was awakened from anesthesia and taken to PACU in stable condition. Complications: none Post-operative Condition: stable Disposition: PACU Plan for aftercare: anticipate dc to home pending postoperative recovery, routine 2wk postop f/u with PCP (Dr. Constantino) per pt request
[2024-12-13] MEDS: SILVER NITRATE STICK 1 EACH TOP (14:34)
[2024-12-13] MEDS: DOXYCYCLINE HYCLATE 100 MG TABLET 200 MG PO (14:56)
== END 2024-12-13 16:15 | disposition home or self-care (01) ==
PROVIDERS: PCP Family Medicine; Referring Provider Obstetrics & Gynecology; Visit Provider Obstetrics & Gynecology
PROC: (CPT 58120; principal; 2024-12-13 14:00)
DX: O02.1 Missed abortion (principal)
CPT/HCPCS: 59820; J0131; J1100; J1885; J2250; J2405; J2704; J3010

== ENCOUNTER → 2024-12-20 12:06 | Outpatient (CLI) | payer OTHER, SELFPAY ==
[2024-12-20 12:47] LABS: Add Manual Diff / Slide Review NO; Hematocrit 38.7 % (36-46); Hemoglobin 13.0 g/dL (12.0-16.0); Lymphocytes Absolute Auto 1900 /uL (1100-4500); Mean Corpuscular HGB Conc 33.7 % (30-36); Mean Corpuscular Hemoglobin 27.8 PG (26-34); Mean Corpuscular Volume 82.4 fL (80-100); Platelet Count 388 X10^3/uL (150-400)
[2024-12-20 13:54] LABS: TSH w/ Reflex to FT4 0.94 uIU/mL (0.47-4.68)
[2024-12-22 17:37] LABS: Cardiolipin Ab IgG <9 GPL U/mL (0-14); Cardiolipin Ab IgM <9 MPL U/mL (0-12)
[2024-12-23 17:11] LABS: Beta-2 Glycoprotein I Ab IgM <9 (0-32)
== END ==
PROVIDERS: PCP Family Medicine; Referring Provider Family Medicine; Visit Provider Family Medicine
DX: O03.9 Complete or unspecified spontaneous abortion without complication (principal); N96 Recurrent pregnancy loss
CPT/HCPCS: 36415; 83520; 84443; 85025; 86146; 86147; 86148

== ENCOUNTER → 2025-01-29 16:11 | Outpatient (CLI) | payer OTHER, SELFPAY ==
[2025-01-29 17:31] LABS: HCG Quantitative /Beta subunit 5.28 mIU/mL
== END ==
PROVIDERS: PCP Family Medicine; Referring Provider Family Medicine; Visit Provider Family Medicine
DX: O08.89 Other complications following an ectopic and molar pregnancy (principal)
CPT/HCPCS: 36415; 84702

== ENCOUNTER → 2025-02-17 15:36 | Outpatient (CLI) | payer OTHER, SELFPAY ==
[2025-02-17 17:25] LABS: HCG Quantitative /Beta subunit 3.33 mIU/mL
== END ==
PROVIDERS: PCP Family Medicine; Referring Provider Family Medicine; Visit Provider Family Medicine
DX: O08.89 Other complications following an ectopic and molar pregnancy (principal)
CPT/HCPCS: 84702

== ENCOUNTER → 2025-04-01 14:00 | Outpatient (CLI) | payer OTHER, SELFPAY ==
[2025-04-01 15:08] LABS: HCG Quantitative /Beta subunit < 2.39 mIU/mL
== END ==
PROVIDERS: PCP Family Medicine; Referring Provider Family Medicine; Visit Provider Family Medicine
DX: O08.89 Other complications following an ectopic and molar pregnancy (principal)
CPT/HCPCS: 36415; 84702

== ENCOUNTER → 2025-05-12 10:26 | Outpatient (CLI) | payer OTHER, SELFPAY ==
[2025-05-12 11:51] LABS: HCG Quantitative /Beta subunit < 2.39 mIU/mL
== END ==
PROVIDERS: PCP Family Medicine; Referring Provider Family Medicine; Visit Provider Family Medicine
DX: O08.89 Other complications following an ectopic and molar pregnancy (principal)
CPT/HCPCS: 36415; 84702